=== PATIENT | female | born 1985 | race Caucasian/White ===

== ENCOUNTER 2016-09-11 14:53 | Emergency (ER) | payer SELFPAY ==
[2016-09-11] MEDS ORDERED: IBUPROFEN 800 MG TABLET PO ONE (15:27)
--- NOTE | 2016-09-11 15:27 | ER Document Report ---
ED Medical Screen (RME) - General Stated Complaint: FACIAL SWELLING Mode of Arrival: Ambulatory Information source: Patient Notes: Patient complains of left lower jaw pain and swelling started yesterday. hx: None I have greeted and performed a rapid initial assessment of this patient. A comprehensive ED assessment and evaluation of the patient, analysis of test results and completion of the medical decision making process will be conducted by additional ED providers. TRAVEL OUTSIDE OF THE [place] IN LAST 30 DAYS: No - Related Data Allergies/Adverse Reactions: No Known Allergies Allergy (Verified 12/25/15 15:51) Past Medical History Renal/ Medical History: Reports: Hx Kidney Stones - Immunizations Hx Diphtheria, Pertussis, Tetanus Vaccination: No Physical Exam - HEENT Notes: Left lower mandibular pain and swelling, skin mildly erythematous. No submental or sublingual swelling.
[2016-09-11] MEDS ORDERED: MORPHINE SULFATE 10 MG/ML INJ IV ONE ×2 (20:48→22:09)
[2016-09-11] MEDS ORDERED: ONDANSETRON HCL INJ/PF 4 MG/2 ML SDV IV ONE (20:49)
--- NOTE | 2016-09-11 21:10 | ER Document Report ---
ED ENT - General Chief Complaint: Facial Swelling Stated Complaint: FACIAL SWELLING Mode of Arrival: Ambulatory Notes: Patient is a 31-year-old female presents emergency Department complaining of left cheek swelling and tooth pain. Patient states that she had symptom onset this morning has become more severe throughout the day. States that she is severe pain in the left lower aspect of her teeth. She is not able to go to a dentist and she does not have dental insurance that she came here. Patient states that she has not had any fractures or recent trauma to her jaw that she does admit to having a history of fillings in her teeth. Otherwise she denies any muffled speech, difficulty swallowing over the right is painful. Any fevers or chills throughout the day her cheek swelling she states that it is hot and tender and it goes down into her neck. She has never had initially this before Otherwise she denies any other primary issues and doesn't have a primary care provider TRAVEL OUTSIDE OF THE [place] IN LAST 30 DAYS: No - Related Data Allergies/Adverse Reactions: No Known Allergies Allergy (Verified 12/25/15 15:51) Past Medical History - General Information source: Patient - Social History Smoking Status: Unknown if Ever Smoked Family History: Reviewed & Not Pertinent Patient has suicidal ideation: No Patient has homicidal ideation: No Renal/ Medical History: Reports: Hx Kidney Stones. Denies: Hx Peritoneal Dialysis - Immunizations Hx Diphtheria, Pertussis, Tetanus Vaccination: No Review of Systems - Review of Systems Constitutional: No symptoms reported EENT: Mouth pain, Mouth swelling Cardiovascular: No symptoms reported Respiratory: No symptoms reported Gastrointestinal: No symptoms reported Genitourinary: No symptoms reported Female Genitourinary: No symptoms reported Musculoskeletal: No symptoms reported Skin: No symptoms reported Hematologic/Lymphatic: No symptoms reported Neurological/Psychological: No symptoms reported Physical Exam - Vital signs Vitals: Temp Pulse Resp BP Pulse Ox 98.2 F 90 16 142/67 H 99 09/11/16 15:26 09/11/16 15:26 09/11/16 15:26 09/11/16 15:26 09/11/16 15:26 - Notes Notes: PHYSICAL EXAM GENERAL: Alert, interacts well. HEAD: Normocephalic, atraumatic. EYES: Pupils equal, round, and reactive to light. Extraocular movements intact. ENT: Oral mucosa moist, tongue midline. left cheek swollen, tender no obvious area to drain. Tender along teeth 18 and 19 without evidence of abscess. No evidence of peritonsillar or retropharyngeal abscess. NECK: Full range of motion. Supple. Trachea midline. LUNGS: Clear to auscultation bilaterally, no wheezes, rales, or rhonchi. No respiratory distress. HEART: Regular rate and rhythm. No murmurs, gallops, or rubs. ABDOMEN: Soft, nondistended, nontender. No guarding, rebound, or rigidity.. Bowel sounds present in all 4 quadrants. EXTREMITIES: Moves all 4 extremities spontaneously. No edema, radial and dorsalis pedis pulses 2/4 bilaterally. No cyanosis. NEUROLOGICAL: Alert and oriented x3. Normal speech. PSYCH: Normal affect, normal mood. SKIN: Warm, dry, normal turgor. No rashes or lesions noted. Course - Re-evaluation Re-evalutation: 09/11/16 22:27 Patient is a 31-year-old female who presents with cheek swelling and tooth pain for the past day. Patient states that she has a history of dental fillings on the part of her mouth but otherwise denies any trauma or oral dental care. Physical exam reveals a swollen tender area on her left cheek and P equal area as well as tenderness to palpation around teeth [address] of the soft tissue with contrast did not reveal any acute fluid collection. She has evidence of soft tissue swelling and no enlarged lymph node. But otherwise no concern for fluid collection. Patient is otherwise hemodynamically stable. She is not tachycardic or hypotensive. Has a mild elevation of white count of 14,000. Given this patient will be treated with outpatient antibiotics and instructed to return to the emergency department in 2-3 days if she does not have any improvement in her symptoms or if they get worse. For dentist to follow-up with in 7-10 days for evaluation of her teeth. - Vital Signs Vital signs: Temp Pulse Resp BP Pulse Ox 98.3 F 71 14 127/74 H 99 09/12/16 00:08 09/12/16 00:08 09/12/16 00:08 09/12/16 00:08 09/12/16 00:08 - Laboratory Result Diagrams: 09/11/16 21:13 09/11/16 21:13 Laboratory results interpreted by me: 09/11/16 09/11/16 21:13 21:13 WBC 14.2 H Absolute Neutrophils 8.9 H Total Protein 6.2 L Discharge - Discharge Clinical Impression: Cellulitis and abscess of face Condition: Good Disposition: HOME, SELF-CARE Instructions: Oral Narcotic Medication ([facility]), Clindamycin ([facility]) Additional Instructions: Cellulitis You have an infection of your skin and underlying soft tissues called cellulitis. This is due to bacteria, which can enter through any break in the skin, or even through an irritated hair follicle. Untreated, cellulitis will usually worsen. Antibiotics are required. Usually, warm packs or warm soaks, and elevation of the infected area are recommended. You should start getting better within 24 to 36 hours. Most infections respond quickly to the right medication. Follow-up care is important, however, to check for abscess (boil) formation, unsuspected foreign body, or resistant infection. If you develop fever, chills, or if the area of infection is becoming rapidly more swollen or painful, return to the emergency room. Please be sure to follow up with a dentist in 7-10 days Prescriptions: Hydrocodone/Acetaminophen [[place] 5-325 mg Tablet] 1 tab PO Q4HP PRN #20 tablet PRN Reason: Clindamycin HCl 300 mg PO TID 10 Days Forms: Elevated Blood Pressure, Parent Work Note, Return to Work
[2016-09-11 21:43] LABS: ABSOLUTE EOSINOPHILS # (AUTO) 0.5 10^3/uL (0.0-0.6); ABSOLUTE LYMPHOCYTES (AUTO) 3.4 10^3/uL (0.5-4.7); ABSOLUTE MONOCYTES (AUTO) 1.4 10^3/uL (0.1-1.4); ABSOLUTE NEUT (AUTO) 8.9 10^3/uL (1.7-8.2); BASOPHILS % (AUTO) 0.3 % (0-2); EOSINOPHILS % (AUTO) 3.5 % (0-6); HEMATOCRIT 38.9 % (36.0-47.0); HEMOGLOBIN 12.8 g/dL (12.0-15.5); HGB HCT DIFFERENCE -0.5; LYMPHOCYTES % (AUTO) 23.6 % (13-45); MEAN CORPUSCULAR HGB CONC 32.9 g/dL (32.0-36.0); MEAN CORPUSCULAR VOLUME 88 fl (80-97); MONOCYTES % (AUTO) 9.9 % (3-13); RED CELL DISTRIBUTION WIDTH 13.8 % (11.5-14.0); SEGMENTED NEUTROPHILS % (AUTO) 62.7 % (42-78); WHITE BLOOD COUNT 14.2 10^3/uL (4.0-10.5)
[2016-09-11 22:07] LABS: ALANINE AMINOTRANSFERASE 41 U/L (9-52); ALBUMIN 3.7 g/dL (3.5-5.0); ALKALINE PHOSPHATASE 76 U/L (38-126); ANION GAP 9 (5-19); ASPARTATE AMINO TRANSFERASE 20 U/L (14-36); BILIRUBIN,TOTAL 0.4 mg/dL (0.2-1.3); BLOOD UREA NITROGEN 9 mg/dL (7-20); CALCIUM 9.3 mg/dL (8.4-10.2); CARBON DIOXIDE 27 mmol/L (22-30); CHLORIDE 106 mmol/L (98-107); CREATININE RESULT 0.71 mg/dL (0.52-1.25); GLUCOSE 76 mg/dL (75-110); SODIUM 141.6 mmol/L (137-145); TOTAL PROTEIN 6.2 g/dL (6.3-8.2)
[2016-09-11] MEDS ORDERED: CLINDAMYCIN 600 MG/D5W RTU 50 ML IV ONE (22:30)
[2016-09-11] MEDS ORDERED: HYDROCODONE/ACETAMINOPHEN 5-325 MG 6 TAB/DSPK PO PRN (23:11)
[2016-09-12 00:33] VITALS: BP 127/74
== END 2016-09-12 00:10 | disposition home or self-care (01) ==
LOC: ER 14:53
DX: L02.01 Cutaneous abscess of face (principal); L03.211 Cellulitis of face; K08.89 Other specified disorders of teeth and supporting structures; D72.829 Elevated white blood cell count, unspecified
CPT/HCPCS: 96376; 99284; 96375; 96365; 36415; 84703; 85025; 80053; 70491; J2270; J2405

== ENCOUNTER 2018-07-31 20:26 | Emergency (ER) | payer SELFPAY ==
[2018-07-31 21:46] LABS: ABSOLUTE EOSINOPHILS # (AUTO) 0.3 10^3/uL (0.0-0.6); ABSOLUTE LYMPHOCYTES (AUTO) 1.4 10^3/uL (0.5-4.7); ABSOLUTE NEUT (AUTO) 11.4 10^3/uL (1.7-8.2); BASOPHILS % (AUTO) 0.2 % (0-2); EOSINOPHILS % (AUTO) 2.3 % (0-6); HEMATOCRIT 40.4 % (36.0-47.0); HEMOGLOBIN 13.6 g/dL (12.0-15.5); LYMPHOCYTES % (AUTO) 9.9 % (13-45); MEAN CORPUSCULAR HEMOGLOBIN 29.8 pg (27.0-33.4); MEAN CORPUSCULAR HGB CONC 33.7 g/dL (32.0-36.0); MEAN CORPUSCULAR VOLUME 89 fl (80-97); MONOCYTES % (AUTO) 7.1 % (3-13); PLATELET COUNT 290 10^3/uL (150-450); RED BLOOD COUNT 4.57 10^6/uL (3.72-5.28); RED CELL DISTRIBUTION WIDTH 13.7 % (11.5-14.0); SEGMENTED NEUTROPHILS % (AUTO) 80.5 % (42-78); TOTAL CELLS COUNTED % (AUTO) 100 %; WHITE BLOOD COUNT 14.1 10^3/uL (4.0-10.5)
[2018-07-31 21:59] LABS: ALANINE AMINOTRANSFERASE 28 U/L (9-52); ALBUMIN 3.8 g/dL (3.5-5.0); ALKALINE PHOSPHATASE 90 U/L (38-126); ANION GAP 6 (5-19); ASPARTATE AMINO TRANSFERASE 22 U/L (14-36); BILIRUBIN,DIRECT 0.3 mg/dL (0.0-0.4); BILIRUBIN,TOTAL 0.4 mg/dL (0.2-1.3); BLOOD UREA NITROGEN 11 mg/dL (7-20); CALCIUM 9.2 mg/dL (8.4-10.2); CARBON DIOXIDE 29 mmol/L (22-30); CHLORIDE 103 mmol/L (98-107); GLUCOSE 118 mg/dL (75-110); LIPASE 115.6 U/L (23-300); POTASSIUM 4.5 mmol/L (3.6-5.0); SODIUM 137.7 mmol/L (137-145); TOTAL PROTEIN 6.6 g/dL (6.3-8.2)
--- NOTE | 2018-07-31 22:06 | ER Document Report ---
ED General - General Chief Complaint: Fever Stated Complaint: POSSIBLE FEVER,EAR PAIN,SORE THROAT Time Seen by Provider: 07/31/18 22:02 Notes: Patient is a 33-year-old female that presents to the emergency department for chief complaint of fever, cough, sore throat, runny nose and earache. Patient states that the symptoms started yesterday, became worse today, she did take Motrin to help with her fever, but it persisted so she decided come to the emergency department. She states she recorded a fever of T-max of 103 at home. Currently describes her pain as a 2 out of 10 describes having generalized body aches, and sore throat and a right earache. Denies having any nausea, vomiting or diarrhea. Denies having any chest pain, shortness of breath or difficulty breathing or abdominal pain. She has had sick contacts, her father and mother have had similar symptoms but to a lesser degree. Past Medical History: Denies chronic medical conditions Past Surgical History: Denies surgical history Social History: Denies tobacco, alcohol or drug use Family History: Reviewed and noncontributory for presenting illness Allergies: Reviewed, see documented allergy list. REVIEW OF SYSTEMS: Other than noted above, the 12 point review of systems was reviewed with the patient and were negative, all pertinent findings are included in the HPI. PHYSICAL EXAMINATION: Vital signs reviewed, nursing noted reviewed. GENERAL: Appears uncomfortable, but nontoxic appearing HEAD: Atraumatic, normocephalic. EYES: Eyes appear normal, extraocular movements intact, sclera anicteric, conjunctiva are normal. ENT: nares patent, mild erythema and tonsillar enlargement to the posterior oropharynx, moist mucous membranes. NECK: Normal range of motion, supple without lymphadenopathy LUNGS: Breath sounds clear to auscultation bilaterally and equal. No wheezes rales or rhonchi. Dry cough noted on exam HEART: Heart rate mildly tachycardic, regular rhythm, no audible murmurs ABDOMEN: Soft, nontender, normoactive bowel sounds. No rebound, guarding, or rigidity. No masses appreciated. EXTREMITIES: Nontender, good range of motion, no pitting or edema. NEUROLOGICAL: No focal neurological deficits. Moves all extremities spontaneously Motor and sensory grossly intact on exam. PSYCH: Normal mood, normal affect. SKIN: Warm, Dry, normal turgor, no rashes or lesions noted on exposed skin TRAVEL OUTSIDE OF THE [place] IN LAST 30 DAYS: No - Related Data Allergies/Adverse Reactions: No Known Allergies Allergy (Verified 07/31/18 20:30) Past Medical History - Social History Smoking Status: Never Smoker Family History: Reviewed & Not Pertinent Renal/ Medical History: Reports: Hx Kidney Stones. Denies: Hx Peritoneal Dialysis - Immunizations Hx Diphtheria, Pertussis, Tetanus Vaccination: No Physical Exam - Vital signs Vitals: Temp Pulse Resp BP Pulse Ox 100.3 F 132 H 20 135/72 H 97 07/31/18 20:35 07/31/18 20:35 07/31/18 20:35 07/31/18 20:35 07/31/18 20:35 Course - Re-evaluation Re-evalutation: Patient seen and examined vital signs reviewed. Laboratory data and imaging were ordered as appropriate for the patient's presenting symptoms and complaint, with consideration of any critical or life threatening conditions that may be associated with their obtained history and exam as noted above. Patient was treated with IV fluids Results were reviewed when available and demonstrated leukocytosis, her blood work otherwise is unremarkable, urinalysis negative, negative strep and influenza testing The patient was re-evaluated and was improved after IV fluids, heart rate improved, patient was overall feeling much better. Patient likely has a viral syndrome, versus bronchitis, she is not hypoxic, and blood pressure stable, heart rate improved with small amount of IV fluids, at this point I feel that the patient can be safely discharged home. Treat symptomatically with Motrin and Tylenol for fever, advised return precautions, and given a prescription for Tessalon Perles for her cough. Results were discussed with the patient at this point, after careful consideration I feel that that patient can be discharged from the emergency department, the patient was educated treatments and reasons to return to the emergency department based on their presumed diagnosis as noted above, they were advised to followup with a primary care physician in 2-3 days. Patient was agreeable to plan of care. *Note is created using voice recognition software and may contain spelling, syntax or grammatical errors. Laboratory 07/31/18 07/31/18 07/31/18 21:09 21:09 21:09 WBC 14.1 H RBC 4.57 Hgb 13.6 Hct 40.4 MCV 89 MCH 29.8 MCHC 33.7 RDW 13.7 Plt Count 290 Seg Neutrophils % 80.5 H Lymphocytes % 9.9 L Monocytes % 7.1 Eosinophils % 2.3 Basophils % 0.2 Absolute Neutrophils 11.4 H Absolute Lymphocytes 1.4 Absolute Monocytes 1.0 Absolute Eosinophils 0.3 Absolute Basophils 0.0 Sodium 137.7 Potassium 4.5 Chloride 103 Carbon Dioxide 29 Anion Gap 6 BUN 11 Creatinine 0.75 Est GFR ( Amer) > 60 Est GFR (Non-Af Amer) > 60 Glucose 118 H Calcium 9.2 Total Bilirubin 0.4 Direct Bilirubin 0.3 Neonat Total Bilirubin Not Reportable Neonat Direct Bilirubin Not Reportable Neonat Indirect Bili Not Reportable AST 22 ALT 28 Alkaline Phosphatase 90 Total Protein 6.6 Albumin 3.8 Lipase 115.6 Serum HCG, Qual NEGATIVE Urine Color Urine Appearance Urine pH Ur Specific [place] Urine Protein Urine Glucose (UA) Urine Ketones Urine Blood Urine Nitrite Urine Bilirubin Urine Urobilinogen Ur Leukocyte Esterase Urine WBC (Auto) Urine RBC (Auto) Squamous Epi Cells Auto Urine Mucus (Auto) Urine Ascorbic Acid Influenza A (Rapid) Influenza B (Rapid) Group A Strep Rapid 07/31/18 07/31/18 07/31/18 22:31 22:35 22:48 WBC RBC Hgb Hct MCV MCH MCHC RDW Plt Count Seg Neutrophils % Lymphocytes % Monocytes % Eosinophils % Basophils % Absolute Neutrophils Absolute Lymphocytes Absolute Monocytes Absolute Eosinophils Absolute Basophils Sodium Potassium Chloride Carbon Dioxide Anion Gap BUN Creatinine Est GFR ( Amer) Est GFR (Non-Af Amer) Glucose Calcium Total Bilirubin Direct Bilirubin Neonat Total Bilirubin Neonat Direct Bilirubin Neonat Indirect Bili AST ALT Alkaline Phosphatase Total Protein Albumin Lipase Serum HCG, Qual Urine Color YELLOW Urine Appearance SLIGHTLY-CLOUDY Urine pH 7.0 Ur Specific [place] 1.014 Urine Protein NEGATIVE Urine Glucose (UA) NEGATIVE Urine Ketones NEGATIVE Urine Blood NEGATIVE Urine Nitrite NEGATIVE Urine Bilirubin NEGATIVE Urine Urobilinogen NEGATIVE Ur Leukocyte Esterase TRACE H Urine WBC (Auto) 2 Urine RBC (Auto) 1 Squamous Epi Cells Auto 16 Urine Mucus (Auto) RARE Urine Ascorbic Acid NEGATIVE Influenza A (Rapid) NEGATIVE Influenza B (Rapid) NEGATIVE Group A Strep Rapid NEGATIVE - Vital Signs Vital signs: Temp Pulse Resp BP Pulse Ox 98.2 F 83 18 125/77 100 08/01/18 00:14 08/01/18 00:02 08/01/18 00:02 08/01/18 00:02 08/01/18 00:02 - Laboratory Result Diagrams: 07/31/18 21:09 07/31/18 21:09 Laboratory results interpreted by me: 07/31/18 07/31/18 07/31/18 21:09 21:09 22:31 WBC 14.1 H Seg Neutrophils % 80.5 H Lymphocytes % 9.9 L Absolute Neutrophils 11.4 H Glucose 118 H Ur Leukocyte Esterase TRACE H Discharge - Discharge Clinical Impression: URI (upper respiratory infection) Condition: Stable Disposition: HOME, SELF-CARE Instructions: Upper Respiratory Illness ([facility]) Additional Instructions: Please return to the emergency department if you have any worsening, or concern of your symptoms. Please return to the emergency department if you develop chest pain, difficulty breathing, severe abdominal pain, or ongoing vomiting. Please follow-up with your primary care physician in 2-3 days and any other recommended physicians. If prescribed, take all medications as directed. If you have any questions or concerns do not hesitate to return the emergency department for evaluation. Prescriptions: Benzonatate [Tessalon Perle 100 mg Capsule] 100 mg PO Q8HP PRN #20 cap PRN Reason: Cough Referrals: SHIRA COOK MD [ACTIVE STAFF] - Follow up in 3-5 days (primary care. )
[2018-07-31] MEDS ORDERED: NORMAL SALINE 1000 ML 1,000 ML IV ONE (22:38)
[2018-07-31 22:54] LABS: APPEARANCE,URINE SLIGHTLY-CLOUDY; BILIRUBIN,URINE NEGATIVE (NEGATIVE); COLOR,URINE YELLOW; GLUCOSE, URINE NEGATIVE (NEGATIVE); KETONES,URINE NEGATIVE (NEGATIVE); LEUKOCYTE ESTERASE,URINE TRACE (NEGATIVE); NITRITE,URINE NEGATIVE (NEGATIVE); PROTEIN,URINE NEGATIVE (NEGATIVE); URINE SPECIFIC GRAVITY 1.014; UROBILINOGEN,URINE NEGATIVE mg/dL (<2.0)
[2018-07-31 23:17] LABS: A TYPE INFLUENZA AG NEGATIVE (NEGATIVE); B INFLUENZA AG NEGATIVE (NEGATIVE)
[2018-08-01 00:02] VITALS: BP 125/77
== END 2018-08-01 00:14 | disposition home or self-care (01) ==
LOC: ER 20:26
DX: J06.9 Acute upper respiratory infection, unspecified (principal)
CPT/HCPCS: 99283; 96360; 36415; 87070; 87880; 83690; 84703; 85025; 80053; 81001; 87804; J7030

== ENCOUNTER 2019-04-13 17:17 | Emergency (ER) | payer OTHER ==
--- NOTE | 2019-04-13 17:49 | ER Document Report ---
ED Medical Screen (RME) - General Chief Complaint: Near Syncope Stated Complaint: SYNCOPAL EPISODE Time Seen by Provider: 04/13/19 17:46 Mode of Arrival: Ambulatory Information source: Patient Notes: 34-year-old female presented to ED for near syncope at the past October. She is been underscore at the best my when she suddenly felt very dizzy and lightheaded and could not continue to walk. She does donate plasma frequently and had done it this morning but states she has never felt this way before. Patient is alert and oriented. She states her last menstrual cycle was February 12 and she has been tested and it was negative we will redo the test. We will also do an Accu-Chek and blood work. I have greeted and performed a rapid initial assessment of this patient. A comprehensive ED assessment and evaluation of the patient, analysis of test results and completion of medical decision making process will be conducted by an additional ED providers. TRAVEL OUTSIDE OF THE [place] IN LAST 30 DAYS: No - Related Data Allergies/Adverse Reactions: No Known Allergies Allergy (Verified 04/13/19 17:19) Past Medical History - Social History Chew tobacco use (# tins/day): No Frequency of alcohol use: None Drug Abuse: None Renal/ Medical History: Reports: Hx Kidney Stones. Denies: Hx Peritoneal Dialysis - Immunizations Hx Diphtheria, Pertussis, Tetanus Vaccination: No Physical Exam - Vital signs Vitals: Temp Pulse Resp BP Pulse Ox 98.7 F 121 H 18 110/79 94 04/13/19 17:25 04/13/19 17:25 04/13/19 17:25 04/13/19 17:25 04/13/19 17:25 Course - Vital Signs Vital signs: Temp Pulse Resp BP Pulse Ox 98.7 F 121 H 18 110/79 94 04/13/19 17:25 04/13/19 17:25 04/13/19 17:25 04/13/19 17:25 04/13/19 17:25
[2019-04-13] MEDS: NORMAL SALINE 1000 ML 1,000 ML IV PRN ×2 (18:28→20:19)
[2019-04-13 18:43] LABS: ABSOLUTE BASOPHILS # (AUTO) 0.1 10^3/uL (0.0-0.2); ABSOLUTE EOSINOPHILS # (AUTO) 0.3 10^3/uL (0.0-0.6); ABSOLUTE LYMPHOCYTES (AUTO) 2.6 10^3/uL (0.5-4.7); ABSOLUTE NEUT (AUTO) 9.3 10^3/uL (1.7-8.2); BASOPHILS % (AUTO) 0.6 % (0-2); EOSINOPHILS % (AUTO) 2.6 % (0-6); HEMATOCRIT 45.3 % (36.0-47.0); LYMPHOCYTES % (AUTO) 19.3 % (13-45); MEAN CORPUSCULAR HEMOGLOBIN 28.8 pg (27.0-33.4); MEAN CORPUSCULAR VOLUME 87 fl (80-97); MONOCYTES % (AUTO) 7.4 % (3-13); PLATELET COUNT 322 10^3/uL (150-450); RED CELL DISTRIBUTION WIDTH 13.4 % (11.5-14.0); SEGMENTED NEUTROPHILS % (AUTO) 70.1 % (42-78); TOTAL CELLS COUNTED % (AUTO) 100 %; WHITE BLOOD COUNT 13.3 10^3/uL (4.0-10.5)
[2019-04-13 19:02] LABS: ALBUMIN 3.9 g/dL (3.5-5.0); ALKALINE PHOSPHATASE 76 U/L (38-126); ANION GAP 9 (5-19); ASPARTATE AMINO TRANSFERASE 23 U/L (14-36); BILIRUBIN,DIRECT 0.1 mg/dL (0.0-0.4); BILIRUBIN,TOTAL 0.2 mg/dL (0.2-1.3); BLOOD UREA NITROGEN 13 mg/dL (7-20); CALCIUM 9.5 mg/dL (8.4-10.2); CARBON DIOXIDE 25 mmol/L (22-30); CHLORIDE 103 mmol/L (98-107); CREATINE KINASE 80 U/L (30-135); GLUCOSE 158 mg/dL (75-110); POTASSIUM 4.3 mmol/L (3.6-5.0); TOTAL PROTEIN 6.5 g/dL (6.3-8.2)
--- NOTE | 2019-04-13 19:09 | EKG REPORT ---
SEVERITY:- BORDERLINE ECG - SINUS RHYTHM SHORT CO INTERVAL, ACCELERATED AV CONDUCTION INFERIOR Q WAVES, PROBABLY NORMAL VARIATION : Confirmed by: Jarod Long 13-Apr-2019 19:07:50
[2019-04-13 19:14] LABS: CREATINE KINASE MB 0.32 ng/mL (<4.55)
[2019-04-13 19:15] LABS: TROPONIN I < 0.012 ng/mL
[2019-04-13 19:28] LABS: VENOUS BLOOD BASE EXCESS -4.9 mmol/L; VENOUS BLOOD HCO3 21.6 mmol/L (20-32); VENOUS BLOOD PCO2 45.5 mmHg (35-63); VENOUS BLOOD PH 7.29 (7.30-7.42)
[2019-04-13 20:31] LABS: APPEARANCE,URINE SLIGHTLY-CLOUDY; BILIRUBIN,URINE NEGATIVE (NEGATIVE); CALCIUM OXALATE CRYSTALS,URINE MODERATE /HPF; COLOR,URINE YELLOW; GLUCOSE, URINE NEGATIVE (NEGATIVE); KETONES,URINE NEGATIVE (NEGATIVE); LEUKOCYTE ESTERASE,URINE NEGATIVE (NEGATIVE); NITRITE,URINE NEGATIVE (NEGATIVE); PROTEIN,URINE 30 mg/dL (NEGATIVE); URINE SPECIFIC GRAVITY 1.029
--- NOTE | 2019-04-13 22:05 | ER Document Report ---
Entered by SIOMARA MONROE SCRIBE 04/13/192050 Acting as scribe for:LIAM MILLER DO ED Syncope and Near Syncope - General Chief Complaint: Near Syncope Stated Complaint: SYNCOPAL EPISODE Time Seen by Provider: 04/13/19 17:46 Mode of Arrival: Ambulatory Information source: Patient Notes: Patient is a 34-year-old female who presents to the emergency department today with complaints of a syncopal event that occurred just prior to arrival when leaving [facility]. at bedside reports just prior to this syncopal event, the patient got off the phone with her ex- in regards to her children. states the patient was very stressed out after getting off the phone and he is unsure if this is related. Patient was nauseated which she stats has since resolved. Patient denies any vomiting. TRAVEL OUTSIDE OF THE [place] IN LAST 30 DAYS: No - Related Data Allergies/Adverse Reactions: No Known Allergies Allergy (Verified 04/13/19 17:19) Past Medical History - General Information source: Patient - Social History Smoking Status: Former Smoker Cigarette use (# per day): No Chew tobacco use (# tins/day): No Frequency of alcohol use: None Drug Abuse: None Lives with: Family Family History: Reviewed & Not Pertinent Patient has suicidal ideation: No Patient has homicidal ideation: No Renal/ Medical History: Reports: Hx Kidney Stones Surgical Hx: Negative - Immunizations Hx Diphtheria, Pertussis, Tetanus Vaccination: No Review of Systems - Review of Systems Constitutional: No symptoms reported EENT: No symptoms reported Cardiovascular: See HPI, Syncope Respiratory: No symptoms reported Gastrointestinal: See HPI, Nausea Genitourinary: No symptoms reported Female Genitourinary: No symptoms reported Musculoskeletal: No symptoms reported Skin: No symptoms reported Hematologic/Lymphatic: No symptoms reported Neurological/Psychological: No symptoms reported -: Yes All other systems reviewed and negative Physical Exam - Vital signs Vitals: Temp Pulse Resp BP Pulse Ox 98.7 F 121 H 18 110/79 94 04/13/19 17:25 04/13/19 17:25 04/13/19 17:25 04/13/19 17:25 04/13/19 17:25 Interpretation: Normal - General General appearance: Appears well, Alert - HEENT Head: Normocephalic, Atraumatic Eyes: Normal Pupils: PERRL Mucous membranes: Dry - Respiratory Respiratory status: No respiratory distress Chest status: Nontender Breath sounds: Normal Chest palpation: Normal - Cardiovascular Rhythm: Regular, Tachycardia Heart sounds: Normal auscultation Murmur: No - Abdominal Inspection: Normal Distension: No distension Bowel sounds: Normal Tenderness: Nontender Organomegaly: No organomegaly - Back Back: Normal, Nontender - Extremities General upper extremity: Normal inspection, Nontender, Normal color, Normal ROM, Normal temperature General lower extremity: Normal inspection, Nontender, Normal color, Normal ROM, Normal temperature, Normal weight bearing. No: Kirill's sign - Neurological Neuro grossly intact: Yes Cognition: Normal Orientation: AAOx4 Poli Coma Scale Eye Opening: Spontaneous [place] Coma Scale Verbal: Oriented [place] Coma Scale Motor: Obeys Commands Poli Coma Scale Total: 15 Speech: Normal Motor strength normal: LUE, RUE, LLE, RLE Sensory: Normal - Psychological Associated symptoms: Normal affect, Normal mood - Skin Skin Temperature: Warm Skin Moisture: Dry Skin Color: Normal Course - Re-evaluation Re-evalutation: 04/13/19 22:04 Patient is a 34-year-old female with no significant past medical history except for kidney stones who comes in after an episode of near syncope today. Patient apparently heard some disturbing news from her ex- became lightheaded and nauseated and then nearly passed out. Patient's initial heart rate was 121 and she was somewhat hypotensive. Orthostatic vital signs are now completely nor mal. Patient feels better after fluids and is taking p.o. without difficulty. Blood work and urine are benign. EKG within normal limits. Neurovascularly intact. Patient will be discharged home and is to follow-up with her doctor. Return if any worsening or concerning symptoms. Stable for discharge. - Vital Signs Vital signs: Temp Pulse Resp BP Pulse Ox 98.3 F 80 18 111/73 100 04/13/19 21:30 04/13/19 19:34 04/13/19 21:01 04/13/19 21:01 04/13/19 21:01 - Laboratory Result Diagrams: 04/13/19 18:20 04/13/19 18:20 Laboratory results interpreted by me: 04/13/19 04/13/19 04/13/19 17:53 18:20 18:20 WBC 13.3 H Absolute Neuts (auto) 9.3 H VBG pH Glucose 158 H POC Glucose 229 H Urine Protein Urine Urobilinogen 04/13/19 04/13/19 19:17 20:03 WBC Absolute Neuts (auto) VBG pH 7.29 L Glucose POC Glucose Urine Protein 30 H Urine Urobilinogen 2.0 H - EKG Interpretation by Me EKG shows normal: Sinus rhythm Rate: Normal Rhythm: NSR Discharge - Discharge Clinical Impression: Vasovagal syncope Condition: Stable Disposition: HOME, SELF-CARE Instructions: Vasovagal Symptoms ([facility]) Additional Instructions: Please make sure you are drinking enough non-caffeinated beverages at home. Please return if you have any further concerns. I personally performed the services described in the documentation, reviewed and edited the documentation which was dictated to the scribe in my presence, and it accurately records my words and actions.
[2019-04-13 22:21] VITALS: BP 110/61
== END 2019-04-13 22:15 | disposition home or self-care (01) ==
LOC: ER 17:17
DX: R55 Syncope and collapse (principal); Z87.891 Personal history of nicotine dependence
CPT/HCPCS: 93005; 99284; 96360; 96361; 36415; 82553; 82962; 82550; 84703; 85025; 80053; 81001; 84484; 82803; 93010; J7030